=== PATIENT | male | born 1995 | race Caucasian/White ===

== ENCOUNTER 2018-11-24 21:32 | Emergency (ER) | payer BC ==
--- NOTE | 2018-11-24 21:54 | EDM.PDOC ---
<Janki Juares - Last Filed: 11/24/18 22:07> ED HPI GENERAL MEDICAL PROBLEM - General Chief Complaint: Upper Extremity Injury/Pain Stated Complaint: LT ARM HURTS Time Seen by Provider: 11/24/18 21:41 - Related Data Allergies Allergy/AdvReac Type Severity Reaction Status Date / Time No Known Allergies Allergy Verified 11/24/18 21:40 Home Meds: Home Meds Antibiotic Meds 11/24/18 [History] Review of Systems - Review of Systems Review Of Systems: ROS reveals no pertinent complaints other than HPI. ED EXAM, GENERAL - Physical Exam Exam: See Below (See dictation) Course - Vital Signs Last Recorded V/S: Last Vital Signs Temp 97.7 F 11/24/18 21:41 Pulse 78 11/24/18 21:41 Resp 18 11/24/18 21:41 BP 125/66 11/24/18 21:41 Pulse Ox 98 11/24/18 21:41 Departure - Departure Time of Disposition: 22:08 Disposition: Home, Self-Care 01 Condition: Good Clinical Impression: Elbow injury Qualifiers: Encounter type: initial encounter Laterality: left Qualified Code(s): S59.902A - Unspecified injury of left elbow, initial encounter - Discharge Information Instructions: RICE for Routine Care of Injuries, [id number] Referrals: PCP,None [Primary Care Provider] - Forms: ED Department Discharge Additional Instructions: The following information is given to patients seen in the emergency department who are being discharged to home. This information is to outline your options for follow-up care. We provide all patients seen in our emergency department with a follow-up referral. The need for follow-up, as well as the timing and circumstances, are variable depending upon the specifics of your emergency department visit. If you don't have a primary care physician on staff, we will provide you with a referral. We always advise you to contact your personal physician following an emergency department visit to inform them of the circumstance of the visit and for follow-up with them and/or the need for any referrals to a consulting specialist. The emergency department will also refer you to a specialist when appropriate. This referral assures that you have the opportunity for followup care with a specialist. All of these measure are taken in an effort to provide you with optimal care, which includes your followup. Under all circumstances we always encourage you to contact your private physician who remains a resource for coordinating your care. When calling for followup care, please make the office aware that this follow-up is from your recent emergency room visit. If for any reason you are refused follow-up, please contact the [facility] emergency department at and ask to speak to the emergency department charge nurse. [facility] Specialty Care--Orthopedic clinic Professional Building [address] [place] [id number] Ice and elevate the area and use sling at all times. Use [id number] medication, ibuprofen or Tylenol, and at the tramadol as needed for pain management. Please call and schedule a follow-up appointment in the orthopedics clinic for further care and evaluation as there is fluid in the joint space which does need to be followed up for a possible occult fracture or injury. Return to ER as needed and as discussed <Reba Last E - Last Filed: 11/25/18 10:08> ED HPI GENERAL MEDICAL PROBLEM - General Source of Information: Reports: Patient History Limitations: Reports: No Limitations - History of Present Illness INITIAL COMMENTS - FREE TEXT/NARRATIVE: HISTORY AND PHYSICAL: History of present illness: Patient is a 23-year-old male who presents to the emergency room with concerns of left elbow pain. He states that he has slipped and fallen on the ice landing on his left elbow. He denies hitting his head or any loss of consciousness. Other than the left elbow pain he has no other concerns or complaints today He denies any fever, chills, chest pain, shortness of breath or cough. Denies any GI or symptoms. He has been eating and drinking appropriately Review of systems: As per history of present illness and below otherwise all systems reviewed and negative. Past medical history: As per history of present illness and as reviewed below otherwise noncontributory. Surgical history: As per history of present illness and as reviewed below otherwise noncontributory. Social history: See social history for further information Family history: As per history of present illness and as reviewed below otherwise noncontributory. Physical exam: General: Well-developed and well-nourished 23-year-old male. Alert and oriented. Nontoxic appearing and in no acute distress. HEENT: Atraumatic, normocephalic, pupils equal and reactive bilaterally, negative for conjunctival pallor or scleral icterus, mucous membranes moist, trachea midline. No drooling or trismus noted. No meningeal signs. No hot potato voice noted. Lungs: Clear to auscultation, breath sounds equal bilaterally, chest nontender. Heart: S1S2, regular rate and rhythm without overt murmur Abdomen: Soft, nondistended, nontender. Pelvis: Stable nontender. Genitourinary: Deferred. Rectal: Deferred. Skin: Intact, warm, dry. No lesions or rashes noted. Extremities: Pain with flexion and extension at the left elbow. Pain with palpation over the olecranon. Strong radial pulse. Capillary refill less than 3 seconds. Has no pain at the hand, wrist, forearm, humerus or shoulder. Neurovascular unremarkable. C-spine/Back: No pinpoint vertebral tenderness upon palpation. No crepitus, step -offs or obvious deformities. Patient is ambulatory into the emergency room without difficulty or deficits. He denies any numbness, tingling or satellite paresthesia. No urinary or fecal incontinence Neuro: Awake, alert, oriented. Cranial nerves II through XII unremarkable. Cerebellum unremarkable. Motor and sensory unremarkable throughout. Exam nonfocal. Notes: Besides the left elbow pain, his physical examination is within normal limits. He is agreeable to an x-ray at this time Elbow x-ray shows no acute disease. We'll place patient in a sling. We'll give him tramadol for moderate to severe pain. Medication education was reviewed and discussed. Supportive care measures were reviewed and discussed. Voices understanding and is agreeable to plan of care. Denies any further questions or concerns at this time. Diagnostics: Left elbow x-ray Therapeutics: Declines pain medication Prescription: Tramadol (#15) Impression: Left elbow injury Plan: 1. Rest, ice, elevate the affected extremity as able. These use the sling has a discussed. 2. Tylenol and/or ibuprofen as needed for pain management. Tramadol for moderate to severe pain. This medication may cause drowsiness a do not take it will driving her needing to be functioning outside of the house. 3. Please follow-up with the orthopedic provider as we discussed. Return to the ED as needed and as discussed. Definitive disposition and diagnosis as appropriate pending reevaluation and review of above. Onset: Today left elbow Pain Score (Numeric/FACES): 5 Past Medical History HEENT History: Reports: None Cardiovascular History: Reports: None Respiratory History: Reports: None Gastrointestinal History: Reports: None Genitourinary History: Reports: None Musculoskeletal History: Reports: None Neurological History: Reports: None Psychiatric History: Reports: None Endocrine/Metabolic History: Reports: None Hematologic History: Reports: None Immunologic History: Reports: None Oncologic (Cancer) History: Reports: None Dermatologic History: Reports: None - Infectious Disease History Infectious Disease History: Reports: None - Past Surgical History Musculoskeletal Surgical History: Reports: Other (See Below) Other Musculoskeletal Surgeries/Procedures:: right forearm surgery Social & Family History - Family History Family Medical History: Noncontributory - Tobacco Use Smoking Status *Q: Current Every Day Smoker Years of Tobacco use: 5 Packs/Tins Daily: 0.5 - Caffeine Use Caffeine Use: Reports: Energy Drinks - Recreational Drug Use Recreational Drug Use: No Review of Systems - Review of Systems Review Of Systems: ROS reveals no pertinent complaints other than HPI. ED EXAM, GENERAL - Physical Exam Exam: See Below
--- NOTE | 2018-11-24 22:06 | CR ---
Indication: Fall. Pain Technique: Three views of the left elbow Comparison: None available Findings: Bones: No displaced fracture seen. No dislocation. Joint spaces: Preserved. Elevation of the anterior elbow fat pad consistent with a joint effusion. Soft tissues: Unremarkable. Impression: An elbow joint effusion. No displaced fracture seen. If a radio-occult injury is suspected, followup. Dictated by Naveen Unger MD @ 11/24/2018 10:05:10 PM Dictated by: Naveen Unger MD @ 11/24/2018 22:05:23 (Electronically Signed)
== END 2018-11-24 22:19 | disposition home or self-care (01) ==
LOC: MW.ED 21:32
DX: S59.902A Unspecified injury of left elbow, initial encounter (principal); F17.210 Nicotine dependence, cigarettes, uncomplicated; W00.0XXA Fall on same level due to ice and snow, initial encounter
CPT/HCPCS: 73080-26-LT; 73080-LT; 99282; 99283-25

== ENCOUNTER 2021-06-28 02:52 | Emergency (ER) | payer BC ==
[2021-06-28] MEDS ORDERED: Benzocaine 20% Topical Spray UD MUCMEM ONE (03:10)
[2021-06-28] MEDS ORDERED: Lidocaine 2% Viscous Solution 15 ML Cup PO ONE (03:10)
--- NOTE | 2021-06-28 03:13 | EDM.PDOC ---
ED HPI GENERAL MEDICAL PROBLEM - General Chief Complaint: ENT Problem Stated Complaint: ABCESSED TOOTH Time Seen by Provider: 06/28/21 02:53 Source of Information: Reports: Patient History Limitations: Reports: No Limitations - History of Present Illness INITIAL COMMENTS - FREE TEXT/NARRATIVE: 25-year-old male presents with dental abscess on the right upper jaw. He has had the symptoms over the past week but it got worse over the past couple days. He has a dental appointment on Monday. He denies fever, chills. ROS: A 10-point review of systems, other than pertinent positives and negatives as stated per HPI, is otherwise negative Past medical history: No additional pertinent history Past Surgical history: No additional pertinent history Social history: No additional pertinent history Family history: No additional pertinent history PHYSICAL EXAM General: AOx4, GCS = 15, mild distress HEENT: dry mucous membrane, right upper jaw periapical abscess on tooth #3 Neck: supple, no meningismus, no Kernig or Brudzinski Cardiac: S1S2 RRR Respiratory: CTAB, no crackles or rales, no wheezing Abdomen: Soft, nontender, no rebound or guarding, nondistended, no pulsatile mass. Back: nontender Musculoskeletal: NVI distally, no deformity Neuro: No focal deficits, CN 2 - 12 WNL. Right Oral/Mouth Pain Score (Numeric/FACES): 7 - Related Data Allergies Allergy/AdvReac Type Severity Reaction Status Date / Time No Known Allergies Allergy Verified 06/28/21 03:01 Home Meds: Home Meds Naproxen [Naprosyn] 500 mg PO Q12HR #30 tab 06/28/21 [Rx] Omeprazole Magnesium [Prilosec Otc] 1 dose PO DAILY 06/28/21 [History] Penicillin V Potassium [Veetids] 500 mg PO Q8H #15 tab 06/28/21 [Rx] Past Medical History HEENT History: Reports: None Cardiovascular History: Reports: None Respiratory History: Reports: None Gastrointestinal History: Reports: None Genitourinary History: Reports: None Musculoskeletal History: Reports: None Neurological History: Reports: None Psychiatric History: Reports: None Endocrine/Metabolic History: Reports: None Hematologic History: Reports: None Immunologic History: Reports: None Oncologic (Cancer) History: Reports: None Dermatologic History: Reports: None - Infectious Disease History Infectious Disease History: Reports: None - Past Surgical History Musculoskeletal Surgical History: Reports: Other (See Below) Other Musculoskeletal Surgeries/Procedures:: right forearm surgery Social & Family History - Family History Family Medical History: No Pertinent Family History - Tobacco Use Tobacco Use Status *Q: Never Tobacco User - Caffeine Use Caffeine Use: Reports: Energy Drinks - Recreational Drug Use Recreational Drug Use: No ED ROS ENT - Review of Systems Review Of Systems: See Below (see dictation) ED EXAM, ENT - Physical Exam Exam: See Below (see dictation) ED ENT PROCEDURES - Additional/Other Procedure(s) Other (Free Text) Procedure(s): INCISION & DRAINAGE: Time performed: 341. A time-out was completed verifying correct patient, procedure, site, positioning, and special equipment if applicable. Indication: Abscess. Location: right #4 peiapical abscess. The area of maximal induration and fluctuance was anesthetized using dental balls. Needle aspiration was performed with #18G needle. Abscess was manually decompressed and probed. This was met with moderate amount 3cc of prurulent drainage. The Patient tolerated well. Time spent: 5 min Course - Vital Signs Last Recorded V/S: Last Vital Signs Temp 97.6 F 06/28/21 03:03 Pulse 66 06/28/21 03:03 Resp 16 06/28/21 03:03 BP 127/77 06/28/21 03:03 Pulse Ox 95 06/28/21 03:03 - Orders/Labs/Meds Meds: Medications Discontinued Medications Generic Name Dose Route Start Last Admin Trade Name Freq PRN Reason Stop Dose Admin Benzocaine 2 each 06/28/21 03:10 06/28/21 03:23 Benzocaine 20% Topical [place] Ud MUCMEM 06/28/21 03:11 2 each ONETIME ONE Administration Lidocaine HCl 15 ml 06/28/21 03:10 06/28/21 03:23 Lidocaine 2% Viscous Solution 15 Ml Cup PO 06/28/21 03:11 15 ml ONETIME ONE Administration - Re-Assessments/Exams Free Text/Narrative Re-Assessment/Exam: 06/28/21 03:42 After I&D in the ER, the patient improved and is currently stable for discharge. I performed a repeat exam and did not appreciate new abnormal findings. Patient exhibits normal vital signs and has a normal gait on road test. I advised the patient to return to the ER for reevaluation if symptoms worsened, including fever, worsening pain, or any other worrisome symptoms. I instructed the patient to follow up with his dentist on Monday. MEDICAL DECISION MAKING: I reviewed the patients past medical records, lab and radiographic findings. I discussed the case with the patient. My differential diagnosis included: Dental abscess Departure - Departure Time of Disposition: 03:43 Disposition: Home, Self-Care 01 Condition: Good Clinical Impression: Dental abscess - Discharge Information *PRESCRIPTION DRUG MONITORING PROGRAM REVIEWED*: Not Applicable *COPY OF PRESCRIPTION DRUG MONITORING REPORT IN PATIENT BOUBACAR: Not Applicable Prescriptions: Naproxen [Naprosyn] 500 mg PO Q12HR #30 tab Penicillin V Potassium [Veetids] 500 mg PO Q8H #15 tab Instructions: Dental Abscess Referrals: PCP,None [Primary Care Provider] - Forms: ED Department Discharge Additional Instructions: The need for follow-up, as well as the timing and circumstances, are variable depending upon the specifics of your emergency department visit. If you don't have a primary care physician on staff, we will provide you with a referral. We always advise you to contact your personal physician following an emergency department visit to inform them of the circumstance of the visit and for follow-up with them and/or the need for any referrals to a consulting spe cialist. The emergency department will also refer you to a specialist when appropriate. This referral assures that you have the opportunity for follow-up care with a specialist. All of these measure are taken in an effort to provide you with optimal care, which includes your follow-up. Under all circumstances we always encourage you to contact your private physician who remains a resource for coordinating your care. When calling for follow-up care, please make the office aware that this follow-up is from your recent emergency room visit. If for any reason you are refused follow-up, please contact the [facility] Emergency Department at and asked to speak to the emergency department charge nurse. If you do not have a primary care doctor, please follow up with the clinics below within 3-5 days. [facility] - Primary Care [address] [place] [address] [id number] [address] [address] Sepsis Event Note (ED) - Evaluation Sepsis Screening Result: No Definite Risk - Focused Exam Vital Signs: Vital Signs Temp Pulse Resp BP Pulse Ox 06/28/21 03:03 97.6 F 66 16 127/77 95
== END 2021-06-28 03:50 | disposition home or self-care (01) ==
LOC: MW.ED 02:52
DX: K04.7 Periapical abscess without sinus (principal)
CPT/HCPCS: 41800; 99282; A9270